=== PATIENT | female | born 2000 | race Two or more races ===

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

== ENCOUNTER → 2024-01-30 | Outpatient (CLI) | payer BC ==
[2024-01-30 14:02] VITALS: BP 122/84; PULSE 106; RESP 16; TEMP 98.3
--- NOTE | 2024-01-30 15:14 | P.SLEEP ---
History of Present Illness DATE: 01/30/2024 CONSULTATION/NEW PATIENT EVALUATION HISTORY OF PRESENT ILLNESS/SLEEP-WAKE EVALUATION: 23-year-old girl had been evaluated in the sleep center for possible obstructive sleep apnea hypopnea syndrome. SLEEP SCHEDULE: Usually sleep schedule 10:30 PM to 7:30 AM on weekdays and from midnight until 9-9:30 on weekends. FALLING ASLEEP: Usually no problems with falling asleep. DURING SLEEP: Patient snores, grind her teeth, has episodes of gasping for air, restless leg symptoms. Patient wakes up from sleep up to 3 times with up to 2 episodes of nocturia. No history of hypnogogical hallucinations, sleep paralysis, or cataplexy. DURING THE DAY/WAKE STATE: In the morning patient wake up tired, has difficulties to pay attention, has problems with concentration, irritability. [place] sleepiness scale is significantly increased to 18. Patient takes nap around 3 PM. PAST MEDICAL HISTORY: Headaches. PAST SURGICAL HISTORY: [place] teeth removed. MEDICATIONS: control pills. SOCIAL HISTORY: Please see below. FAMILY HISTORY: Snoring, headaches, thyroid problems. REVIEW OF SYSTEMS: Snoring, multiple awakenings from sleep, sleepiness during the day. No fevers. No double vision. No recent chest pain. No shortness of breath. No abdominal pain. No bleeding episodes. No blood in urine. No seizure episodes. PHYSICAL EXAMINATION: GENERAL: A pleasant patient without any distress. VITAL SIGNS: Please see below, weight 134.2 pounds, BMI 23.9. HEENT: PERRLA, EOMI. Evaluation of oropharynx showed tongue protrudes midline, low position of soft palate Mallampati 34, retrognathia 2 mm. NECK: Supple. No JVD. Thyroid is not palpable. 12.5 inches in circumference. LUNGS: Clear to percussion and to auscultation. Good air exchange. No wheezing or rhonchi. HEART: S1, S2 regular. No murmurs, gallops or rubs. ABDOMEN: Soft and nontender. Bowel sounds are present. No organomegaly appreciated. EXTREMITIES: No clubbing or cyanosis. [employer] SPECIALIST: Awake, alert, and oriented x3. Cranial nerves 2 to 7 intact. There is no fasciculation or atrophy noted. No focal deficits observed. ASSESSMENT: 1. Snoring, multiple awakenings from sleep with nocturia, low position of soft palate Mallampati 34, retrognathia 2 mm, sleepiness. Possible obstructive sleep apnea hypopnea syndrome. 2. Significant sleepiness with [place] Sleepiness Scale 18 dictate necessity to include narcolepsy and idiopathic hypersomnia in differential diagnosis. 3. Restless leg symptoms. 4. Movements during the sleep, possibly periodic limb movements. PLAN: 1. Home sleep apnea test for evaluation of patient's breathing during sleep. 2. Following plan after reading sleep study. If sleep study will be negative for obstructive sleep apnea hypopnea syndrome, we will proceed with polysomnography to check for leg movements and MSLT for objective relation sleepiness. 3. Preferable position during sleep on the side. 4. No driving if patient feels any sleepiness. Patient is aware of civil and criminal liability for unsafe driving. 5. Sleep hygiene with regular sleep time for at least 7.5-8 hours. 6. Watching weight. Thank you very much for referring this patient for consultation. Sincerely, Vijay Danielson MD, PhD, FAASM. Diplomat of [place] [employer], Sleep Medicine Board by [place] [employer] [place] [employer] Quality Facilitator of [facility] [place] Past Medical History Past Medical History: Pneumonia Additional Past Medical History / Comment(s): Snoring, headaches, History of Any Multi-Drug Resistant Organisms: None Reported Additional Past Surgical History / Comment(s): [place] teeth Past Psychological History: No Psychological Hx Reported Smoking Status: Never smoker Past Alcohol Use History: Occasional Past Drug Use History: None Reported - Past Family History Father Family Medical History: Hyperlipidemia, Hypertension Additional Family Medical History / Comment(s): Snoring, headaches/migraines. Mother Additional Family Medical History / Comment(s): Sinus headaches, sinus issues, nasal polyps. (grandmother - thyroid problems) Physical Exam Vitals: Vital Signs Temp Pulse Resp BP Pulse Ox 01/30/24 13:58 98.3 F 106 H 16 122/84 99 Intake and Output 01/30/24 01/30/24 01/30/24 06:59 14:59 22:59 Other: Weight 60.838 kg Sleep Note - Sleep Data ESS Total: 18 - Sleep Note Sleep Note: Temperature: 98.3 F Pulse Rate: 106 Respiratory Rate: 16 Blood Pressure: 122/84 SpO2: 99 Height: 5 ft 2.7 in Weight: 60.838 kg BMI: Neck Circumference:
== END ==
LOC: 3 N SLEEP 13:32
PROVIDERS: ATTEND Internal Medicine
CPT/HCPCS: 99211

== ENCOUNTER → 2024-02-11 | Outpatient (CLI) | payer BC ==
--- NOTE | 2024-02-13 12:07 | P.PCN ---
Description of Procedure: CLINICAL: A home sleep apnea test has been done for confirmation of possible obstructive sleep apnea-hypopnea syndrome. DESCRIPTION OF PROCEDURE: RESULTS: Recording time was 9 hours 59 minutes. Evaluation time was 9 hours 47 minutes. Evaluation time is sufficient for making conclusion about results of the test. Raw data of sleep recording has been reviewed and is adequate. Respiratory channel showed 0 apneas and 0 hypopneas. Apnea-hypopnea index was 0 per hour. Pulse rate in the range between minimum 54, maximum 128, average 78 by computer calculation. Lowest desaturation was 93%. IMPRESSION: 1. No significant respiratory abnormalities have been documented during the sleep study, normal oxygenation during sleep. 2. Few snoring episodes were documented. 3. Significant excessive daytime sleepiness with [place] Sleepiness Scale 18 dictate necessity to include hypersomnia and narcolepsy and differential diagnosis. Please see other impressions from consultation. PLAN: 1. Multiple sleep latency test for objective evaluation symptoms of significant excessive daytime sleepiness for differential diagnosis of hypersomnia and narcolepsy, we will also check polysomnogram for possible periodic limb movements. 2. Following plan after reading MSLT. 3. Sleep hygiene with regular time in bed for at least 8 hours. 4. No driving if feeling any sleepiness. Thank you very much for allowing me to participate in the management of your patient. Sincerely, Vijay Danielson MD, PhD, FAASM Diplomat of [place] [employer] Sleep Medicine Board of [place] [employer] Material Analyst of [facility] [place] cc: Sveta Flaherty [facility]
== END ==
LOC: 3 N SLEEP 10:59
PROVIDERS: ATTEND Internal Medicine